=== PATIENT | female | born 1955 | race Caucasian/White ===

== ENCOUNTER 2023-06-12 16:28 | Outpatient (RCR) | payer MEDICARE, OTHER, SELFPAY | END 2023-06-12 23:59 | disposition home or self-care (01) | LOC: RPT 16:28 | PROVIDERS: ATTENDING PHYSICIAN Orthopaedic Surgery; FAMILY PHYSICIAN Internal Medicine | DX: M17.0 Bilateral primary osteoarthritis of knee (principal); M76.31 Iliotibial band syndrome, right leg | CPT/HCPCS: 97110; 97162 ==

== ENCOUNTER 2023-07-08 14:09 | Outpatient (RCR) | payer MEDICARE, OTHER, SELFPAY | END 2023-07-08 23:59 | disposition home or self-care (01) | LOC: RPT 14:09 | PROVIDERS: ATTENDING PHYSICIAN Orthopaedic Surgery; FAMILY PHYSICIAN Internal Medicine | DX: M76.31 Iliotibial band syndrome, right leg (principal); M17.0 Bilateral primary osteoarthritis of knee; Z73.6 Limitation of activities due to disability; M62.81 Muscle weakness (generalized); R26.2 Difficulty in walking, not elsewhere classified | CPT/HCPCS: 97010; 97110; 97140 ==

== ENCOUNTER → 2023-09-08 08:32 | Outpatient (REF) | payer MEDICARE, OTHER, SELFPAY | LOC: WDC 08:32 | PROVIDERS: ATTENDING PHYSICIAN Obstetrics & Gynecology Gynecology; FAMILY PHYSICIAN Internal Medicine | DX: Z12.31 Encounter for screening mammogram for malignant neoplasm of breast (principal) | CPT/HCPCS: 77063; 77067 ==

== ENCOUNTER → 2023-09-30 09:36 | Outpatient (REF) | payer MEDICARE, OTHER, SELFPAY | LOC: RAD 09:36 | PROVIDERS: ATTENDING PHYSICIAN Internal Medicine; FAMILY PHYSICIAN Internal Medicine | DX: M81.0 Age-related osteoporosis without current pathological fracture (principal) | CPT/HCPCS: 77080 ==

== ENCOUNTER → 2024-07-27 11:14 | Outpatient (REF) | payer MEDICARE, OTHER, SELFPAY | LOC: RAD 11:14 | PROVIDERS: ATTENDING PHYSICIAN Internal Medicine | DX: M54.50 Low back pain, unspecified (principal) | CPT/HCPCS: 72110 ==